=== PATIENT | male | born 1960 | race Caucasian/White ===

== ENCOUNTER → 2022-02-05 13:23 | Outpatient (BNVA) | payer MEDICARE, SELFPAY | PROVIDERS: PCP Internal Medicine; Visit Provider Nurse Practitioner Family | DX: G24.4 Idiopathic orofacial dystonia (principal); R25.1 Tremor, unspecified; R53.83 Other fatigue; F09 Unspecified mental disorder due to known physiological condition | CPT/HCPCS: 99202 ==

== ENCOUNTER 2022-02-17 15:43 | Outpatient (REF) | payer MEDICARE, SELFPAY ==
[2022-02-17 16:05] LABS: MANUAL DIFF FLAG NO
[2022-02-17 16:27] LABS: Basophils Percent Auto 0.8 % (0-2); Eosinophils Absolute Auto 0.2 X10*3/uL (0.0-0.4); Eosinophils Percent Auto 3.6 % (0-4); Hematocrit 38.1 % (42.0-52.0); Hemoglobin 12.7 g/dl (14.0-18.0); Imm Gran Abs Auto 0.01 X10*3/uL (0.00-0.03); Imm Gran Pct Auto 0.2 % (0.0-0.4); Lymphocytes Absolute Auto 1.3 X10*3/uL (1.2-4.9); Lymphocytes Percent Auto 25.1 % (20-40); Mean Corpuscular HGB Conc 33.3 g/dl (31.0-36.0); Mean Corpuscular Hemoglobin 31.8 pg (27.0-33.0); Mean Corpuscular Volume 95.3 fL (80.0-98.0); Mean Platelet Volume 8.7 fL (9.4-12.4); Monocytes Absolute Auto 0.4 X10*3/uL (0.1-1.2); Monocytes Percent Auto 6.8 % (2-11); Neutrophils Absolute Auto 3.3 x10*3/uL (2.0-8.3); Neutrophils Percent Auto 63.5 % (45-73); Platelet Count 193 X10*3/uL (160-400); Red Cell Distribution Width 12.8 % (11.0-16.0); White Blood Count 5.3 X10*3/uL (4.8-10.8)
[2022-02-17 17:00] LABS: Alanine Aminotransferase 19 U/L (0-40); Albumin Level 4.3 g/dL (3.5-5.0); Alkaline Phosphatase 60 U/L (39-117); Anion Gap 10 (12-20); Aspartate Amino Transferase 15 U/L (5-37); Bilirubin Total 0.3 mg/dL (0.0-1.0); Blood Urea Nitrogen 16 mg/dL (9-16); Calcium 9.2 mg/dL (8.4-10.2); Carbon Dioxide 28 mmol/L (22-29); Chloride 101 mmol/L (96-108); Estimated Glomerular Filt Rate 56; Glucose Random 83 mg/dL (60-115); Potassium 4.3 mmol/L (3.3-5.1); Sodium 135 mmol/L (135-145); Total Protein 6.5 g/dL (6.5-8.0)
[2022-02-17 17:21] LABS: TSH reflex Free T4 1.45 uIU/mL (0.32-4.0)
[2022-02-17 17:22] LABS: Erythrocyte Sedimentation Rate 3 MM/HR (0-15)
[2022-02-17 17:34] LABS: Folate 15.2 ng/mL (> or = 4.0); Vitamin B12 383 pg/mL (200-900)
[2022-02-18 03:50] LABS: HIV AB/AG Nonreactive (Nonreactive); HIV Num 1 0.05 S/CO (0.00-0.99)
[2022-02-18 06:14] LABS: Syphilis Screen Nonreactive (Nonreactive)
[2022-02-20 11:41] LABS: Anti Nuclear Antibody Pattern Nuclear, Speckled; Anti Nuclear Antibody Screen POSITIVE (NEGATIVE)
[2022-02-21 16:45] LABS: Methylmalonic Acid 164 nmol/L (87-318)
== END 2022-02-17 15:44 | disposition home or self-care (01) ==
LOC: HO.LAB 15:43
PROVIDERS: PCP Internal Medicine; Visit Provider Nurse Practitioner Family
DX: R53.83 Other fatigue (principal); C95.90 Leukemia, unspecified not having achieved remission; F09 Unspecified mental disorder due to known physiological condition; R25.1 Tremor, unspecified
CPT/HCPCS: 36415; 80053; 82607; 82746; 83090; 83921; 84443; 85025; 85652; 86038; 86039; 86780; 87389

== ENCOUNTER 2022-02-19 07:18 | Outpatient (REF) | payer MEDICARE, SELFPAY ==
--- NOTE | ~2022-02-19 | MR_ITS ---
EXAMINATION: MR BRAIN WITHOUT AND WITH CONTRAST CLINICAL INFORMATION: 61-year-old with long and short-term memory loss and Parkinson's. COMPARISON: None TECHNIQUE: Multiplanar, multisequence MRI of the brain was obtained before and after the intravenous administration of 8 mL Gadavist. FINDINGS: BRAIN VOLUME: Within normal limits. STRUCTURAL: No malformations. BRAIN AND MENINGES: DWI sequence demonstrates no restricted diffusion. Specifically, there is no evidence for acute or subacute cerebral ischemia. Note is made of a zone of brain parenchymal volume loss overlying the lateral aspect of the left frontal lobe, extending to the left frontal opercular region with adjacent parenchymal gliosis suggesting encephalomalacia. Suggest correlation for any history of previous trauma to explain this. No definite hemosiderin staining is seen associated with this. Scattered subcentimeter foci of FLAIR/T2 signal hyperintensity are seen within the white matter of both cerebral hemispheres without abnormal enhancement which are nonspecific findings but could reflect small zones of chronic ischemic microangiopathy. Gradient refocused imaging demonstrates no evidence for hemorrhage, hemosiderin staining or abnormal mineral deposition. No extra-axial fluid collections, intracranial mass lesions, abnormal enhancement, space-occupying process or mass effect. VENTRICLES AND SUBARACHNOID SPACES: The ventricular system is within normal limits without hydrocephalus. ORBITAL STRUCTURES: The visualized orbital structures are grossly unremarkable within the limitations of the study. VASCULAR: Signal voids are noted in the visualized major intracranial vessels. OSSEOUS STRUCTURES, SINUSES/MASTOIDS, EXTRACRANIAL SOFT TISSUES: 1.5 cm retention cyst lateral wall left maxillary sinus. Bony structures appear grossly unremarkable. Visualized extracranial soft tissue structures are unremarkable. Minimal retained secretions in the right mastoid and mild mucosal thickening in the ethmoid complex and frontal sinuses. MR/MR head/brain wo/w con IMPRESSION: 1. Left frontal encephalomalacia noted along the lateral margin of the frontal lobe, possibly also involving the left temporal pole. Correlate for any history of remote trauma to explain this. 2. Scattered nonenhancing white matter T2 hyperintensities likely reflecting chronic ischemic microangiopathy. 3. No acute intracranial process. 4. Paranasal sinus inflammatory changes and minimal nonspecific retained secretions in the right mastoid.
== END 2022-02-19 07:19 | disposition home or self-care (01) ==
LOC: HO.MRI 07:18
PROVIDERS: Visit Provider Nurse Practitioner Family
DX: F09 Unspecified mental disorder due to known physiological condition (principal); G24.4 Idiopathic orofacial dystonia
CPT/HCPCS: 70553; A9585

== ENCOUNTER → 2022-03-16 13:56 | Outpatient (BNVA) | payer MEDICARE, SELFPAY | PROVIDERS: PCP Internal Medicine; Visit Provider Nurse Practitioner Family | DX: G24.4 Idiopathic orofacial dystonia (principal); F09 Unspecified mental disorder due to known physiological condition | CPT/HCPCS: 99212 ==

== ENCOUNTER 2022-04-29 12:54 | Outpatient (REF) | payer MEDICARE, SELFPAY ==
--- NOTE | 2022-04-29 12:59 | EEG_ITS ---
This is a 16-channel EEG with an EKG lead. The patient is reported awake during the tracing. Background EEG rhythm is low amplitude fast with no obvious asymmetry or paroxysmal tendency. Photic stimulation does not produce any significant abnormality. Hyperventilation is not performed. Cardiac lead does not reveal any significant abnormality. No sharp wave spikes or paroxysmal tendency noted. IMPRESSION: Unremarkable EEG. MD MAXIMILIANO Chavez/EZRA / [id number]
== END 2022-04-29 12:55 | disposition home or self-care (01) ==
LOC: HO.NEURO 12:54
PROVIDERS: Visit Provider Nurse Practitioner Family
DX: G24.4 Idiopathic orofacial dystonia (principal); F09 Unspecified mental disorder due to known physiological condition
CPT/HCPCS: 95816

== ENCOUNTER → 2022-05-22 08:29 | Outpatient (BNVA) | payer MEDICARE, SELFPAY | PROVIDERS: PCP Internal Medicine; Visit Provider Nurse Practitioner Family | DX: G20 Parkinson's disease (principal); G24.4 Idiopathic orofacial dystonia; F09 Unspecified mental disorder due to known physiological condition | CPT/HCPCS: 99212 ==

== ENCOUNTER → 2022-08-12 07:51 | Outpatient (BNVA) | payer MEDICARE, SELFPAY | PROVIDERS: PCP Internal Medicine; Visit Provider Nurse Practitioner Family | DX: G20 Parkinson's disease (principal); G24.4 Idiopathic orofacial dystonia; F09 Unspecified mental disorder due to known physiological condition | CPT/HCPCS: 99212 ==

== ENCOUNTER 2022-12-16 10:58 | Outpatient (REF) | payer MEDICARE, SELFPAY ==
--- NOTE | ~2022-12-16 | XR_ITS ---
EXAMINATION: XR cervical spine min 6V CLINICAL INFORMATION: Pain COMPARISON: None TECHNIQUE: 5 views of the cervical spine were obtained. FINDINGS: The cervical spine is visualized to the level of C7 on the lateral view. Vertebral body alignment is maintained. No significant motion on flexion-extension views. Vertebral body heights are maintained. Lateral masses of C1 are well aligned on C2. Visualized portion of the dens is intact. Intervertebral disc spaces are preserved. Uncovertebral hypertrophy and facet arthropathy results in severe neural foraminal narrowing on the right at C3/C4 and in severe neural foraminal narrowing on the left at C4/C5. No prevertebral soft tissue swelling. XR/XR cervical spine min 6V IMPRESSION: 1. Severe neural foraminal narrowing, as above detailed.
== END 2022-12-16 10:59 | disposition home or self-care (01) ==
LOC: HO.XRAY 10:58
PROVIDERS: PCP Internal Medicine; Visit Provider Nurse Practitioner Family
DX: G20 Parkinson's disease (principal); M54.2 Cervicalgia
CPT/HCPCS: 72052; 99212

== ENCOUNTER → 2023-03-18 09:24 | Outpatient (BNVA) | payer MEDICARE, SELFPAY | PROVIDERS: PCP Internal Medicine; Visit Provider Nurse Practitioner Family | DX: G20 Parkinson's disease (principal); F09 Unspecified mental disorder due to known physiological condition; M48.02 Spinal stenosis, cervical region | CPT/HCPCS: 99212 ==

== ENCOUNTER 2023-10-15 08:57 | Outpatient (AMB) | payer MEDICARE, SELFPAY ==
[2023-10-15 09:05] VITALS: BP 110/70; BMI 23.7
--- NOTE | 2023-10-15 09:05 | A.OFFVIS_ITS ---
Intake Vital Signs 10/15/23 09:05 Height 5 ft 10 in Weight 165 lb 4 oz BMI 23.7 BP 110/70 Blood Pressure Location Rt brachial Position Sitting Intake Visit Reasons: FOLLOW UP - Confirmed Intake Note: Patient presents for follow up. I'm very soar mainly my arms is progressively gotten worst. Allergies No Known Allergies Allergy (Verified 10/15/23 09:07) Medication List - Last Reconciled 10/15/23 by STACI Bowden bupropion HCl 300 mg PO QAM carbidopa-levodopa 25-100 mg 1.5 tabs PO TID 90 days clonidine HCl 0.2 mg PO BEDTIME fluoxetine 80 mg PO DAILY gabapentin 100 - 300 mg (1 - 3 x 100 mg) PO BEDTIME 30 days omeprazole 20 mg PO DAILY trazodone 100 mg PO BEDTIME HPI HPI Comments History of Present Illness Details 63-yr-old male presents for f/u visit. Pt reports he had david mild case of Covid-19 about a month ago. He has had increased family stress- his dtr's unexpectedly in May. Pt's current PD medication regimen: CD-LD 25-100mg 1 tab QID Do medication effects last between doses: Unsure, may forget a dose if he is busy. Pt's primary concerns are: He is overall more sore, stiff, and having difficulty rolling over in bed and getting up from a chair. His left small toe- can want to stand up . He did do PT, which helped some. ADL's: Ind, but slow Swallowing: No issues Orthostatic lightheadedness: Can have some lightheadedness upon standing or when walking can bump into things. Tries to drink and eat ok. Constipation: None Freezing: At times- one foot does not start- more so in right foot Stiffness: as above Tremor: Sometimes tremor can be more bothersome- such as when holding a coffee cup. Falls: Can feel off-balance at times- after standing up or just walking. Hallucinations: Occasionally may think someone is sitting in a chair. Memory: lousy - maybe a little worse. Occasionally may forget his granddtr's na me that he watches most days. Mood: About a month ago- states he just stopped his bupropion and fluoxetine- felt that he was a bit too passive. Now his mood isn't worse but he is not letting everything roll off his shoulders . Sleep: Sleeping ok Exercise: Has been helping a family member move. [facility] [place] Medical History History of leukemia Family History Father Cancer Mother Cancer Social History Alcohol intake: never Patient Tobacco Use Status: Current everyday Tobacco user Review of Systems Const All systems reviewed & are unremarkable except as noted in HPI and below Physical Exam Vital Signs: Last Vital Signs BP 110/70 10/15/23 09:05 BMI result Body Mass Index 23.7 Const General: cooperative and no acute distress Resp Effort & Inspection: normal respiratory effort and able to speak in complete sentences Neuro Other: General: Alert, oriented Expression: Decreased expression and blink. Voice: Soft Tremor: RUE rest tremor. Very mild BUE postural tremor. Tone: BUE rigidity FFM: Bradykinesia, more so on left Foot taps: Bradykinesia Gait: Uses hand to stand-up, slight stoop, no arm swing, slightly antalgic short steps. Psych: Flat affect. Assessment & Plan Assessment & Plan (1) Parkinson's disease: Comment: w/ positive DaTscan Code(s): G20 - Parkinson's disease (2) Cognitive dysfunction: Comment: ? secondary to hx of chemotehrapy. ? progressing. Code(s): F09 - Unspecified mental disorder due to known physiological condition (3) Cervicalgia: Code(s): M54.2 - Cervicalgia Plan Adjust Sinemet 25-100mg from 1.5 tab qid to: CD-LD IR 25-100mg 1.5 tabs qid at 8,12, 4, 8 and CD-LD ER 25-100mg 1 tab qhs Continue Gabapentin 100mg 1-3 caps qhs 9or 100mg tid)- for neck pain, headache. Monitor mood. Continue PT exercises. Pt previously declined f/u neuropsych eval. Will monitor cognition clinically. f/u in 4 months or sooner prn. Medications: New carbidopa-levodopa 25-100 mg ER 1 tab PO BEDTIME 90 tabs 1RF 90 days carbidopa-levodopa 25-100 mg 8am, 12pm, 4pm, 8pm 1 tab PO QID 360 tabs 1RF 90 days Discontinued carbidopa-levodopa 25-100 mg Discontinued Reason: Doctor's Order 1.5 tabs PO TID 90 days 405 tabs 1RF Coding Level of Care Code Est Pt Level 4 (17884) Diagnoses Parkinson's disease G20 Cognitive dysfunction F09 Cervicalgia M54.2
== END 2023-10-15 09:54 | disposition home or self-care (01) ==
PROVIDERS: PCP Internal Medicine; Visit Provider Nurse Practitioner Family
DX: G20.A2 Parkinson's disease without dyskinesia, with fluctuations (principal); R41.89 Other symptoms and signs involving cognitive functions and awareness; M54.2 Cervicalgia
CPT/HCPCS: 99214

== ENCOUNTER → 2023-10-15 08:57 | Outpatient (BNVA) | payer MEDICARE, SELFPAY | PROVIDERS: PCP Internal Medicine; Visit Provider Nurse Practitioner Family | DX: G20.A1 Parkinson's disease without dyskinesia, without mention of fluctuations (principal); F09 Unspecified mental disorder due to known physiological condition; M54.2 Cervicalgia | CPT/HCPCS: 99212 ==

== ENCOUNTER 2024-02-15 09:27 | Outpatient (AMB) | payer MEDICARE, SELFPAY ==
--- NOTE | 2024-02-15 09:45 | MHC.OFFVIS ---
Vital Signs 02/15/24 09:49 Height 5 ft 10 in Weight 167 lb 6 oz BMI 24.0 BP 112/60 Blood Pressure Location Lt brachial Position Sitting Pulse 65 Pulse Source Pulse Oximeter Pulse Oximetry (%) 95 Oxygen Delivery Method Room Air Intake Visit Reasons: 4 mnts f/u appt for parkinson's-CONF Intake Note: Patient presents for 4 months f/u. Allergies No Known Allergies Allergy (Verified 02/15/24 09:49) Medication List - Last Reconciled 02/15/24 by STACI Bowden carbidopa-levodopa 25-100 mg 1 tab PO QID 90 days carbidopa-levodopa 25-100 mg ER 1 tab PO BEDTIME 90 days clonidine HCl 0.2 mg PO BEDTIME gabapentin 100 - 300 mg (1 - 3 x 100 mg) PO BEDTIME 30 days omeprazole 20 mg PO DAILY trazodone 100 mg PO BEDTIME HPI Comments Details: 63-yr-old male presents for f/u visit. Pt is accompanied by his . Pt denies any significant interval medical history changes. Pt's current PD medication regimen: CD-LD IR 25-100mg 1 tabs qid at 8,12, 4, 8 and CD-LD ER 25-100mg 1 tab qhs. This change did seem to be helpful. Pt's primary concerns are: Pt's is concerned that pt is more easily frustrated and easily angered. She notes that at times, he seems almost paranoid, especially when something has been misplaced, will think the family has taken it. Today, pt tells us that he has stopped his mental med - fluoxetine, bupropion, ? Gabapentin. He endorses feeling more depressed. ADL's: Ind, but slow Swallowing: No issues Orthostatic lightheadedness: Can have some, but better. Constipation: None Freezing: At times- one foot does not start- more so in right foot Stiffness: Can be stiff and sore at times. Toes may curl and posture. Tremor: Tremor stable- able to do his ADLs. Falls: Can feel off-balance at times. No falls. Hallucinations: Occasionally may think someone is sitting in a chair. Or see something out of the corner of his eye. Memory: lousy - maybe a little worse. Difficulty w/ decision making. has added a daily activity calender. Mood: as above Sleep: Sleeping ok Exercise: He states he is active when there is project. He tried the PD BIG program- stopped before the end of it, felt it was too much for him. [facility] Medical History (Updated 02/20/24 @ 21:26 by STACI Bowden) Parkinson's disease History of leukemia Family History Father Cancer Mother Cancer Social History Alcohol intake: never Patient Tobacco Use Status: Current everyday Tobacco user Review of Systems Const All systems reviewed & are unremarkable except as noted in HPI and below Physical Exam Vital Signs: Last Vital Signs Pulse 65 02/15/24 09:49 BP 112/60 02/15/24 09:49 Pulse Ox 95 02/15/24 09:49 Oxygen Delivery Method Room Air 02/15/24 09:49 BMI result Body Mass Index 24.0 Const General: cooperative and no acute distress Resp Effort & Inspection: normal respiratory effort and able to speak in complete sentences Neuro Other: General: Alert, oriented Expression: Decreased expression and blink. Voice: Soft Tremor: RUE rest tremor. Very mild BUE postural tremor. Tone: BUE rigidity FFM: Bradykinesia, more so on left Foot taps: Bradykinesia Gait: Uses hand to stand-up, slight stoop, no arm swing, slightly antalgic short steps. Psych: Flat affect. Assessment & Plan Assessment & Plan (1) Parkinson's disease without dyskinesia: Comment: w/ positive DaTscan Code(s): G20.A1 - Parkinson's disease without dyskinesia, without mention of fluctuations Category: Medical (2) Cognitive dysfunction: Comment: ? secondary to hx of chemotehrapy. ? progressing. Code(s): F09 - Unspecified mental disorder due to known physiological condition Category: Medical (3) Depression: Code(s): F32.A - Depression, unspecified Category: Medical Plan Continue CD-LD IR 25-100mg 1 tab qid at 8, 12, 4, 8 and CD-LD ER 25-100mg 1 tab qhs Resume Fluoxetine 20mg qd x's 2 wks, then 20mg bid. Continue Gabapentin 100mg 1-3 caps qhs (or 100mg tid)- for neck pain, headache. Monitor mood. Encouraged to increase exercises- reviewed local PD exercise classes. Pt previously declined f/u neuropsych eval. Will monitor cognition clinically. f/u in 4 months or sooner prn. Medications: New fluoxetine 20 mg orally qd x's 2 weeks, then bid; 60 caps 3RF 30 days Refilled carbidopa-levodopa 25-100 mg ER 1 tab PO BEDTIME 90 tabs 1RF 90 days carbidopa-levodopa 25-100 mg 8am, 12pm, 4pm, 8pm 1 tab PO QID 360 tabs 1RF 90 days Coding Level of Care Code Est Pt Level 4 (31872) Diagnoses Parkinson's disease without dyskinesia G20.A1 Cognitive dysfunction F09 Depression F32.A
[2024-02-15 09:49] VITALS: BP 112/60; PULSE 65; O2SAT 95; BMI 24.0
== END 2024-02-15 10:40 | disposition home or self-care (01) ==
PROVIDERS: PCP Internal Medicine; Visit Provider Nurse Practitioner Family
DX: G20.A1 Parkinson's disease without dyskinesia, without mention of fluctuations (principal); R41.89 Other symptoms and signs involving cognitive functions and awareness; F32.A Depression, unspecified
CPT/HCPCS: 99214

== ENCOUNTER → 2024-02-15 09:27 | Outpatient (BNVA) | payer MEDICARE, SELFPAY | PROVIDERS: PCP Internal Medicine; Visit Provider Nurse Practitioner Family | DX: G20.A1 Parkinson's disease without dyskinesia, without mention of fluctuations (principal); F09 Unspecified mental disorder due to known physiological condition; F32.A Depression, unspecified | CPT/HCPCS: 99212 ==

== ENCOUNTER 2024-08-22 09:26 | Outpatient (AMB) | payer MEDICARE, SELFPAY ==
--- NOTE | 2024-08-22 09:33 | MHC.OFFVIS ---
Vital Signs 08/22/24 09:34 Height 5 ft 10 in Weight 163 lb BMI 23.4 BP 124/82 Blood Pressure Location Rt brachial Position Sitting Intake Visit Reasons: 6 Month F/U Intake Note: Patient presents for 6 month follow up. Allergies No Known Allergies Allergy (Verified 08/22/24 09:38) Medication List - Last Reconciled 08/22/24 by STACI Bowden bupropion HCl XL 300 mg PO QAM carbidopa-levodopa 25-100 mg 1 tab PO QID 90 days carbidopa-levodopa 25-100 mg ER 1 tab PO BEDTIME 90 days clonidine HCl 0.2 mg PO BEDTIME fluoxetine 20 mg PO BID 30 days gabapentin 100 - 300 mg (1 - 3 x 100 mg) PO BEDTIME 30 days omeprazole 20 mg PO DAILY trazodone 100 mg PO BEDTIME HPI Comments Details: 64-yr-old male presents for f/u visit. Pt is accompanied by his . Pt denies any significant interval medical history changes. Though he has been noticing increased aches and pains. Pt's current PD medication regimen: CD-LD IR 25-100mg 1 tabs qid at 8,12, 4, 8 and CD-LD ER 25-100mg 1 tab qhs- however he has been taking it as CD-LD IR 25-100mg tid and CD-LD ER 25-100 q 8pm. Pt's primary concerns are: Pt is concerned that pt is more angry and depressed. notes decreased motivation. He did resume the fluoxetine and felt better, so then stopped it again. Previously was on fluoxetine and bupropion, ? Gabapentin- pt thought it suppressed his emotions too much. ADL's: Ind, but slow Swallowing: No issues Orthostatic lightheadedness: Occasional but brief Constipation: None Tremor: Tremor varies- notices when holding toothbrush/silverware, putting toothpaste on the toothbrush. Freezing: At times- one foot does not start- more so in right foot Stiffness: Can be stiff and sore at times- neck, shoulders, knees. Toes may curl and posture. Gait: Hurts to walk, right knee/king especially, sometimes left knee. Falls: No falls. Hallucinations: Occasionally may think someone is sitting in a chair- like a ghost- not scary. Or see something out of the corner of his eye. Memory: bad . not recalling when things are about to happen/appointments, forgetting name of his his 3 yo granddtr who comes over every day. has added a daily activity calender. Mood: as above Sleep: Using sleep meds. goes to bed at 9:30-10pm and wakes up between 3-4am, occasional cat naps-per . Exercise: He does some activities at home- seems more limited.. Note walking much. He tried the PD BIG program- stopped before the end of it, felt it was too much for him. [facility] Medical History Parkinson's disease History of leukemia Family History Father Cancer Mother Cancer Social History Alcohol intake: never Patient Tobacco Use Status: Current everyday Tobacco user Physical Exam Vital Signs: Last Vital Signs BP 124/82 08/22/24 09:34 BMI result Body Mass Index 23.4 Const General: cooperative and no acute distress Resp Effort & Inspection: normal respiratory effort and able to speak in complete sentences Neuro Other: General: Alert, oriented Expression: Decreased expression and blink. Voice: Soft Tremor: RUE rest tremor. Very mild BUE postural tremor. Tone: BUE rigidity FFM: Bradykinesia, more so on left Foot taps: Bradykinesia Gait: Uses hand to stand-up, slight stoop, no left arm swing, increased antalgic gait- short steps. Psych: Flat affect. Right knee- tender to touch- more so in anterior lower patellar region, mild diffuse swelling Assessment & Plan Assessment & Plan (1) Right knee pain: Code(s): M25.561 - Pain in right knee Category: Medical (2) Parkinson's disease without dyskinesia: Comment: w/ positive DaTscan Code(s): G20.A1 - Parkinson's disease without dyskinesia, without mention of fluctuations Category: Medical (3) Cognitive dysfunction: Comment: ? secondary to hx of chemotehrapy. ? progressing. Code(s): F09 - Unspecified mental disorder due to known physiological condition Category: Medical (4) Depression: Code(s): F32.A - Depression, unspecified Category: Medical Plan Discussed importance of regular physical activity in managing PD and cognitive s/s. As worsening chronic right knee pain is limiting mobility, will request ortho consult. Discussed obtaining x-ray, pt prefers to wait for ortho consult. Continue CD-LD IR 25-100mg 1 tab qid at 8, 12, 4, 8 and CD-LD ER 25-100mg 1 tab qhs Resume Fluoxetine 20mg qd x's 2 wks, then 20mg bid. Resume Gabapentin 100mg 1-3 caps qhs (or 100mg tid)- for neck pain, headache. Monitor mood. Pt previously declined f/u neuropsych eval. Will monitor cognition clinically. f/u in 4-6 months or sooner prn. Orders: Referrals Orthopedics Referral M25.561 - Pain in right knee, G20.A1 - Parkinson's disease without dyskinesia, without mention of fluctuations Medications: Refilled fluoxetine 20 mg PO BID 60 caps 6RF 30 days Coding Level of Care Code Est Pt Level 4 (32632) Diagnoses Right knee pain M25.561 Parkinson's disease without dyskinesia G20.A1 Cognitive dysfunction F09 Depression F32.A Comment
[2024-08-22 09:34] VITALS: BP 124/82; BMI 23.4
== END 2024-08-22 10:30 | disposition home or self-care (01) ==
LOC: HO.HSMS 09:27
PROVIDERS: PCP Internal Medicine; Visit Provider Nurse Practitioner Family
DX: M25.561 Pain in right knee (principal); G20.A1 Parkinson's disease without dyskinesia, without mention of fluctuations; R41.89 Other symptoms and signs involving cognitive functions and awareness; F32.A Depression, unspecified
CPT/HCPCS: 99214

== ENCOUNTER → 2024-08-22 09:26 | Outpatient (BNVA) | payer MEDICARE, SELFPAY | PROVIDERS: PCP Internal Medicine; Visit Provider Nurse Practitioner Family | DX: G20.A1 Parkinson's disease without dyskinesia, without mention of fluctuations (principal); M25.561 Pain in right knee; F09 Unspecified mental disorder due to known physiological condition; F32.A Depression, unspecified | CPT/HCPCS: 99212 ==

== ENCOUNTER 2024-10-02 08:50 | Outpatient (REF) | payer MEDICARE, SELFPAY ==
--- NOTE | ~2024-10-02 | XR_ITS ---
EXAMINATION: XR RIGHT KNEE CLINICAL INFORMATION: Pain in right knee M25.561. COMPARISON: None available TECHNIQUE: AP standing view, lateral and sunrise views of the right knee. FINDINGS: Mild patellofemoral compartment osteoarthritis with a small marginal osteophyte. Small joint effusion. Medial and lateral compartments appear normal. No acute abnormality. XR/XR knee RT 3V IMPRESSION: Mild patellofemoral compartment osteoarthritis with a small joint effusion. Electronically signed by: Johny Hancock MD 11/09/2024 09:21 AM [facility]
--- NOTE | ~2024-10-02 | XR_ITS ---
EXAMINATION: XR LEFT KNEE CLINICAL INFORMATION: Pain in unspecified knee M25.569. COMPARISON: None available. TECHNIQUE: AP standing view of the left knee. FINDINGS: Normal AP standing view of the left knee. XR/XR knee LT 1V IMPRESSION: Normal AP standing view of the left knee. Electronically signed by: Johny Hancock MD 11/09/2024 09:[address] [facility]
== END 2024-10-02 08:51 | disposition home or self-care (01) ==
LOC: HO.HOSX 08:50
PROVIDERS: PCP Internal Medicine; Visit Provider Orthopaedic Surgery
DX: M25.561 Pain in right knee (principal); M25.562 Pain in left knee; G20.A1 Parkinson's disease without dyskinesia, without mention of fluctuations
CPT/HCPCS: 73560; 73562; 99202

== ENCOUNTER 2024-10-02 08:50 | Outpatient (AMB) | payer MEDICARE, SELFPAY ==
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
[2024-10-02 09:04] VITALS: BMI 23.4
== END 2024-10-02 09:24 | disposition home or self-care (01) ==
PROVIDERS: PCP Internal Medicine; Visit Provider Orthopaedic Surgery
DX: G20.A1 Parkinson's disease without dyskinesia, without mention of fluctuations (principal); M25.561 Pain in right knee
CPT/HCPCS: 99204

== ENCOUNTER 2025-02-22 09:24 | Outpatient (AMB) | payer MEDICARE, SELFPAY ==
[2025-02-22 09:32] VITALS: BP 122/84; PULSE 66; O2SAT 99; BMI 23.0
--- NOTE | 2025-02-22 09:32 | MHC.OFFVIS ---
Vital Signs 02/22/25 09:32 Height 5 ft 10 in Weight 160 lb BMI 23.0 BP 122/84 Blood Pressure Location Lt brachial Position Sitting Pulse 66 Pulse Source Pulse Oximeter Pulse Oximetry (%) 99 Oxygen Delivery Method Room Air Intake Visit Reasons: 6 Month F/U Intake Note: Patient presents 6 month follow up cognitive dysfunction. 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 Pt is accompanied by his . Pt denies any significant interval medical history changes. Pt's current PD medication regimen: CD-LD IR 25-100mg 1 tabs qid at 8,12, 4, 8, and at bedtime. States CD-LD ER was not covered by his insurance. Pt's primary concerns are: Pt is concerned that he is having more difficulty rolling over in bed and his hands and toes are curling more. He is having difficulty speaking in the morning- soft voice or the words just don't come out. Patient is worried he may have Alzheimer's. ADL's: Ind, but slow Vision: dry eye- not using tear gtts, but takes oral vitamins. has h/o right eye injury. has poor vision- but uses glasses. denies diplopia- but sttaes the clock in this room is clearer when looking with just his left eye. Swallowing: No issues Orthostatic lightheadedness: Occasional but brief- more so in the shower. GI: decreased appetite- but weight stable. Constipation: None Tremor: Tremor increased- especially after increased physical activity or picking up heavier items. Freezing: At times- one foot does not start- more so in right foot- more so after increased activity Stiffness: Can be stiff and sore at times- neck, shoulders, knees. Toes may curl and posture. Gait: He is prone to bounce against the pepe when walking down the stairs- this rarely happens when walking down a hallway. Falls: No falls. Hallucinations: Occasionally may think someone is sitting in a chair- like a ghost- not scary. Or see something out of the corner of his eye. Memory: continues to have STM lapses. has added a daily activity calender. Mood: pt sttaes his mood is fine- he is again taking fluoxetine. Sleep: Using sleep med tx's- falls asleep but prone to waking up. Goes to bed at 9:30-10pm and wakes up between 3-4am, occasional cat naps- per . Exercise: He does some activities at home. Not walking much d/t knee pain. He tried the PD BIG program- stopped before the end of it, felt it was too much for him. [facility] Medical History Parkinson's disease History of leukemia Family History Father Cancer Mother Cancer Social History Alcohol intake: never Patient Tobacco Use Status: Current everyday Tobacco user Physical Exam Vital Signs: Last Vital Signs Pulse 66 02/22/25 09:32 BP 122/84 02/22/25 09:32 Pulse Ox 99 02/22/25 09:32 Oxygen Delivery Method Room Air 02/22/25 09:32 BMI result Body Mass Index 23.0 Const General: cooperative and no acute distress Resp Effort & Inspection: normal respiratory effort and able to speak in complete sentences Neuro Other: General: Alert, oriented Expression: Decreased expression and blink. Voice: Soft Tremor: RUE rest tremor. Very mild BUE postural tremor. Tone: BUE rigidity Involuntary moevemnts: During exam BUE ROM/rigidity and foot taps- elicited jerking in body/arms and increased shaking in legs. FFM: Bradykinesia, more so on left Foot taps: Marked bradykinesia- foot taps elicit increased BLE tremor Gait: Uses hand to stand-up, slight stoop, no left arm swing, increased antalgic gait- short steps. Psych: Pleasant affect. Assessment & Plan Assessment & Plan (1) Parkinson's disease without dyskinesia: Comment: w/ positive DaTscan Code(s): G20.A1 - Parkinson's disease without dyskinesia, without mention of fluctuations Category: Medical (2) Cognitive dysfunction: Comment: ? secondary to hx of chemotehrapy. ? progressing. Code(s): F09 - Unspecified mental disorder due to known physiological condition Category: Medical (3) Depression: Code(s): F32.A - Depression, unspecified Category: Medical Qualifiers: Active/Remission status: currently active Depression Type: major depressive disorder Major depression episode severity: unspecified Major depression recurrence: recurrent Qualified Code(s): F33.9 - Major depressive disorder, recurrent, unspecified Plan Patient states insurance will not cover CD LD ER. Discontinue CD-LD IR 25-100mg 1 tab qid at 8, 12, 4, 8 and CD-LD ER 25-100mg 1 tab qhs. Start CD-LD IR 2 tabs at 8 am, 1 tab at 11am, 2pm, 5pm, and 2 tabs at 9pm Continue Fluoxetine 20mg bid. Continue Gabapentin 100mg 1-3 caps qhs (or 100mg tid)- for neck pain, headache. Discussed benefits of psychotherapy, however patient declines. Monitor mood. Trial OTC tear gtts- if not helpful consider referral to Dr Simpson for diplopia eval. Pt previously declined f/u neuropsych eval. Will monitor cognition clinically. Patient encouraged to continue to engage in regular physical, social, and cognitive stimulating activities. Perform MMSE at follow-up. f/u in 6 months or sooner prn. Medications: Changed From carbidopa-levodopa 25-100 mg 8am, 12pm, 4pm, 8pm 1 tab PO QID 90 days 360 tabs 1RF To carbidopa-levodopa 25-100 mg 2 tabs at 8 am, 1 tab at 11am, 2pm, 5pm, and 2 tabs at 9pm orally 4 times a day; 8am, 12pm, 4pm, 8pm 90 days 630 tabs 1RF From carbidopa-levodopa 25-100 mg 2 tabs at 8 am, 1 tab at 11am, 2pm, 5pm, and 2 tabs at 9pm orally 4 times a day; 8am, 12pm, 4pm, 8pm 90 days 630 tabs 1RF To carbidopa-levodopa 25-100 mg 2 tabs at 8 am, 1 tab at 11am, 2pm, 5pm, and 2 tabs at 9pm orally .; 8am, 12pm, 4pm, 8pm 90 days 630 tabs 1RF Discontinued carbidopa-levodopa 25-100 mg ER Discontinued Reason: Doctor's Order 1 tab PO BEDTIME 90 days 90 tabs 1RF Coding Level of Care Code Est Pt Level 4 (06325) Complex EM visit Add On G2211 Diagnoses Parkinson's disease without dyskinesia G20.A1 Cognitive dysfunction F09 Episode of recurrent major depressive disorder, unspecified depression episode severity F33.9 Active/Remission status: currently active Depression Type: major depressive disorder Major depression episode severity: unspecified Major depression recurrence: recurrent
== END 2025-02-22 10:36 | disposition home or self-care (01) ==
LOC: HO.HSMS 09:24
PROVIDERS: PCP Internal Medicine; Visit Provider Nurse Practitioner Family
DX: G20.A1 Parkinson's disease without dyskinesia, without mention of fluctuations (principal); F02.83 Dementia in other diseases classified elsewhere, unspecified severity, with mood disturbance; F33.9 Major depressive disorder, recurrent, unspecified
CPT/HCPCS: 99214; G2211

== ENCOUNTER → 2025-02-22 09:24 | Outpatient (BNVA) | payer MEDICARE, SELFPAY | PROVIDERS: PCP Internal Medicine; Visit Provider Nurse Practitioner Family | DX: G20.A1 Parkinson's disease without dyskinesia, without mention of fluctuations (principal); F09 Unspecified mental disorder due to known physiological condition; F33.9 Major depressive disorder, recurrent, unspecified | CPT/HCPCS: 99212 ==

== ENCOUNTER 2025-08-27 08:50 | Outpatient (AMB) | payer MEDICARE, SELFPAY ==
[2025-08-27 08:59] VITALS: BP 110/70; PULSE 79; O2SAT 96; BMI 22.7
--- NOTE | 2025-08-27 08:59 | MHC.OFFVIS ---
Vital Signs 08/27/25 08:59 Height 5 ft 10 in Weight 158 lb BMI 22.7 BP 110/70 Blood Pressure Location Lt brachial Position Sitting Pulse 79 Pulse Source Pulse Oximeter Pulse Oximetry (%) 96 Oxygen Delivery Method Room Air Intake Visit Reasons: 6 Month F/U Intake Note: Patient presents 6 month follow up cognitive dysfunction. 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 Pt is accompanied by his . Patient reports that he has had an increased weight loss, recently lost another 5 lbs in 1 month. He states he is being scheduled for a colonoscopy and endoscopy. He states he was eating less, but not sure why. He denies any recent abdominal pain or reflux symptoms. Since the weight loss, he has been trying to eat more. His notes that he does not take the initiative to make himself even simple meals, such as a peanut butter and fluff sandwich. His has always done much of the food prep. She is frustrated because she is still working part-time, and he is home and is able to do other complicated task, such as yardwork etc. Pt's current PD medication regimen: CD-LD IR 25-100mg 1 tab 5 times per day at 8, 11, 2, 5, 8. Note, he did not increase the dose as recommended at his last visit- he states he was unaware of this. Pt's primary concerns are: Pt is concerned that he is having more difficulty rolling over in bed and his hands and toes are curling more. He is having difficulty speaking in the morning- soft voice or the words just don't come out. Patient is worried he may have Alzheimer's. ADL's: Ind, but slow Vision: dry eye. has h/o right eye injury. has poor vision- but uses glasses. denies diplopia- the clock in this room is clearer when looking with just his left eye. Voice: Is softer in the morning, and may have slow word retrieval. Taste and smell sensation: further decreased Swallowing: No issues Orthostatic lightheadedness: Brief occasional OH and feeling off balance, occurring in shower or if he stands quickly, such as when a family member wants to give him a hug good-bye. GI: as above Constipation: none Tremor: Tremor can be increased at times- especially after increased physical activity or picking up heavier items. Freezing: At times, after he first stands up- one foot does not start- more so in right foot Stiffness: Can be stiff and sore at times- neck, shoulders, knees. Toes may curl and posture. Gait: He uses the wall and railing Falls: No falls. Hallucinations: Occasionally may think someone is sitting in a chair- like a ghost- not scary. Or see something out of the corner of his eye. Memory: continues to have STM difficulties w/ names. previously added a daily activity calender, but he does not use it. Mood: pt reports he is depressed everyday, feels bad that he messed everyone's life up, how he could have done things differently- he is again taking fluoxetine. he is not currently seeing a therapist. no longer attends [employer]. he tries to take care of the house. Sleep: Using sleep med tx's- falls asleep with his sleep tx. denies naps- states that there is no time for naps. Exercise: He does some activities at home. Not walking much d/t knee pain- he did see ortho, who gave him meloxicam which helped but he has not been back. He previously tried the PD BIG program- stopped before the end of it, felt it was too much for him. [facility] Medical History Parkinson's disease History of leukemia Family History Father Cancer Mother Cancer Social History Alcohol intake: never Patient Tobacco Use Status: Current everyday Tobacco user Physical Exam Vital Signs: Last Vital Signs Pulse 79 08/27/25 08:59 BP 110/70 08/27/25 08:59 Pulse Ox 96 08/27/25 08:59 Oxygen Delivery Method Room Air 08/27/25 08:59 BMI result Body Mass Index 22.7 Const General: cooperative and no acute distress Resp Effort & Inspection: normal respiratory effort and able to speak in complete sentences Neuro Other: General: Alert, oriented Expression: Decreased expression and blink. Voice: Soft Tremor: RUE rest tremor. Very mild BUE postural tremor. Tone: BUE rigidity, right greater than left Involuntary moevemnts: During exam BUE ROM/rigidity and foot taps- elicited jerking in body/arms and increased shaking in legs. FFM: Bradykinesia, more so on left Foot taps: Bradykinesia Gait: Uses hand to stand-up, slight stoop, no left arm swing, short steps with antalgic gait Psych: Pleasant affect. Assessment & Plan Assessment & Plan (1) Parkinson's disease without dyskinesia: Comment: w/ positive DaTscan Code(s): G20.A1 - Parkinson's disease without dyskinesia, without mention of fluctuations Category: Medical (2) Cognitive dysfunction: Comment: ? secondary to hx of chemotehrapy. ? progressing. Code(s): F09 - Unspecified mental disorder due to known physiological condition Category: Medical (3) Depression: Code(s): F32.A - Depression, unspecified Category: Medical Qualifiers: Depression Type: major depressive disorder Major depression recurrence: recurrent Active/Remission status: currently active Major depression episode severity: unspecified Qualified Code(s): F33.9 - Major depressive disorder, recurrent, unspecified (4) Right anterior knee pain: Code(s): M25.561 - Pain in right knee Category: Medical Plan Discontinue order for CD-LD IR 2 tabs at 8 am, 1 tab at 11am, 2pm, 5pm, and 2 tabs at 9pm Start carbidopa-levodopa IR 25-100 mg, 1 tab at 6 am (hour of awakening), 8 am, 11 am, 2 pm, 5 pm, and 8 pm Continue Fluoxetine 20mg bid. Continue Gabapentin 100mg 1-3 caps qhs (or 100mg tid)- for neck pain, headache. OTC tear gtts- if not helpful consider referral to Dr Simpson for diplopia eval. We will request orthopedic 2nd opinion for right knee pain with Dr. Polo at [facility]. In the meantime, will refill order for meloxicam 15 mg p.o. daily as needed for right knee pain. Reviewed strategies to improve his nutrition intake, such as having small nutrient dense snacks or protein supplement drinks, which may make it easier for him to eat, as even making a simple sandwich does overwhelm him at this point. Pt previously declined f/u neuropsych eval. Continue to monitor cognition clinically. Discussed resuming psychotherapy, however patient is not interested at this time.. Continue to monitor mood Continue to engage in regular physical, social, and cognitive stimulating activities as able. f/u in 6 months or sooner prn. Orders: Referrals Orthopedics Referral G20.A1 - Parkinson's disease without dyskinesia, without mention of fluctuations, M25.561 - Pain in right knee Medications: Changed From carbidopa-levodopa 25-100 mg 2 tabs at 8 am, 1 tab at 11am, 2pm, 5pm, and 2 tabs at 9pm orally .; 8am, 12pm, 4pm, 8pm 90 days 630 tabs 1RF To carbidopa-levodopa 25-100 mg 1 tab at 6 am, 8 am, 11 am, 2 pm, 5 pm, and 8 pm; orally 630 tabs 1RF 90 days Refilled gabapentin 100 - 300 mg (1 - 3 x 100 mg) PO BEDTIME 90 caps 6RF 30 days meloxicam 15 mg PO DAILY 30 tabs 2RF fluoxetine 20 mg PO BID 60 caps 6RF 30 days Coding Level of Care Code Est Pt Level 4 (36514) Complex EM visit Add On G2211 Diagnoses Parkinson's disease without dyskinesia G20.A1 Cognitive dysfunction F09 Episode of recurrent major depressive disorder, unspecified depression episode severity F33.9 Depression Type: major depressive disorder Major depression recurrence: recurrent Active/Remission status: currently active Major depression episode severity: unspecified Right anterior knee pain M25.561
== END 2025-08-27 10:16 | disposition home or self-care (01) ==
LOC: HO.HSMS 08:51
PROVIDERS: PCP Internal Medicine; Visit Provider Nurse Practitioner Family
DX: G20.A1 Parkinson's disease without dyskinesia, without mention of fluctuations (principal); R41.89 Other symptoms and signs involving cognitive functions and awareness; F33.9 Major depressive disorder, recurrent, unspecified; M25.561 Pain in right knee
CPT/HCPCS: 99214; G2211

== ENCOUNTER → 2025-08-27 08:50 | Outpatient (BNVA) | payer MEDICARE, SELFPAY | PROVIDERS: PCP Internal Medicine; Visit Provider Nurse Practitioner Family | DX: G20.A1 Parkinson's disease without dyskinesia, without mention of fluctuations (principal); F02.83 Dementia in other diseases classified elsewhere, unspecified severity, with mood disturbance; Z72.0 Tobacco use; F09 Unspecified mental disorder due to known physiological condition; F33.9 Major depressive disorder, recurrent, unspecified; M25.561 Pain in right knee | CPT/HCPCS: 99212 ==